=== PATIENT | male | born 1960 | race Caucasian/White ===

== ENCOUNTER 2018-10-29 16:13 | Emergency (ER) | payer OTHER ==
[~2018-10-29] VITALS: Ht 160 cm; Wt 64.0 kg
[2018-10-29 16:21] VITALS: BP 151/78
[2018-10-29] MEDS ORDERED: CEPH-572 PO (17:35)
[2018-10-29] MEDS ORDERED: cephalexin 250mg capsule PO ONE (17:40)
== END 2018-10-29 17:48 | disposition home or self-care (01) ==
LOC: ER 16:14
DX: S90.02XA Contusion of left ankle, initial encounter (principal); Z88.0 Allergy status to penicillin; Z79.2 Long term (current) use of antibiotics; V86.56XA Driver of dirt bike or motor/cross bike injured in nontraffic accident, initial encounter; Y93.89 Activity, other specified; Y92.89 Other specified places as the place of occurrence of the external cause; Y99.8 Other external cause status
CPT/HCPCS: 29515; 73610; 99283